=== PATIENT | male | born 2000 | race Caucasian/White ===

== ENCOUNTER 2025-07-01 14:07 | Outpatient (REF) | payer BC, SELFPAY ==
[2025-07-01 15:53] LABS: Hemoglobin A1C 5.2 % (<5.7)
[2025-07-01 16:16] LABS: ALT 76 U/L (16-63); AST 32 U/L (15-37); Albumin 4.2 g/dL (3.4-5.0); Alkaline Phosphatase 83 U/L (46-116); Anion Gap 8.9 mmol/L (3-11); BUN 9 mg/dL (7-18); Bilirubin, Total 1.0 mg/dL (0.2-1.0); CO2 26.1 mmol/L (21.0-32.0); Calcium 9.1 mg/dL (8.5-10.1); Calculated LDL 133 mg/dL (<100); Chloride 103 mmol/L (98-107); Cholesterol 208 mg/dL (<200); Estimated GFR 124.40 (mL/min/1.73m2); Glucose 92 mg/dL (74-106); HDL Cholesterol 38 mg/dL (>or=40); Potassium 4.0 mmol/L (3.5-5.1); Sodium 138 mmol/L (136-145); TSH (W/Ref FT4) 1.70 uIU/mL (0.36-3.74); Total Protein 7.8 g/dL (6.4-8.2); Triglyceride 185 mg/dL (<150); Vitamin D 25 Total 15 ng/mL (30-100)
== END 2025-07-01 14:08 | disposition home or self-care (01) ==
LOC: NCHCN 14:07
PROVIDERS: PCP Nurse Practitioner Family; Visit Provider Nurse Practitioner Family
DX: Z00.00 Encounter for general adult medical examination without abnormal findings (principal)
CPT/HCPCS: 80053; 80061; 82306; 83036; 84443

== ENCOUNTER 2025-10-01 09:48 | Outpatient (REF) | payer BC, SELFPAY ==
[2025-10-01 16:40] LABS: Vitamin D 25 Total 38 ng/mL (30-100)
== END 2025-10-01 09:49 | disposition home or self-care (01) ==
LOC: NCHCN 09:48
PROVIDERS: PCP Nurse Practitioner Family; Visit Provider Nurse Practitioner Family
DX: E55.9 Vitamin D deficiency, unspecified (principal)
CPT/HCPCS: 82306